=== PATIENT | male | born 1945 | race African-American/Black ===

== ENCOUNTER 2016-12-01 05:26 | Emergency (ER) | payer MEDICARE, OTHER ==
[~2016-12-01] VITALS: Ht 177.8 cm; Wt 110.0 kg
[~2016-12-01 05:26] MED LIST: ALTA1.256 PO; ASPI81 PO; CARV12.52 PO; GUAI600 PO; MAXZ25 PO; RIVA15 PO; ZITH250T PO
[2016-12-01 05:28] VITALS: BP 189/89; PULSE 66; RESP 16; TEMP 97.6; O2SAT 98
[2016-12-01] MEDS ORDERED: cloNIDine HCL 0.2 MG TAB PO ONE (05:45)
[2016-12-01] MEDS ORDERED: RAMI1.252 PO (05:47)
[2016-12-01] MEDS ORDERED: CARV12.52 PO (05:47)
[2016-12-01] MEDS ORDERED: ASPI81CH CHEW (05:47)
[2016-12-01] MEDS ORDERED: ATOR1TAB18 PO (05:50)
[2016-12-01] MEDS ORDERED: TRIA37.5 PO (05:50)
--- NOTE | 2016-12-01 05:59 | PD ---
HPI Chief Complaint: Nosebleed Time Seen by Provider: 05:54 Travel History International Travel<30 days: No Contact w/Intl Traveler<30days: No Traveled to known affect area: No History of Present Illness HPI 71-year-old black male presents to emergency department for evaluation of epistaxis. According to the patient sometime last hour or so he had noticed some trickling of blood out of his right nostril. He states that he had stop the bleeding by holding direct pressure. He presents this evening to determine the etiology of the bleeding. He states that this is a second time at its bled in the past. It had bled several months ago. The etiology was not determined. He states that he has insurance and he would like to get it evaluated. He states that he needs blood work. 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 Betancur. He states that he had been on Xarelto but he is not taking any blood thinners at this current time except for a daily aspirin. Denies any recent illness. He does take medication for hypertension. PFSH Past Medical History Narrative Medical Pulmonary embolus, hypertension, hypercholesterolemia Hx Anticoagulant Therapy: Yes Autoimmune Disease: No Anxiety: No Depression: No Cancer: No Cardiovascular Problems: Yes (HTN) High Cholesterol: Yes Chemotherapy: No Cerebrovascular Accident: No Diabetes: No Endocrine: No Genitourinary: No Hypertension: Yes Immune Disorder: No Musculoskeletal: Yes Neurologic: No Psychiatric: No Respiratory: No Tetanus Vaccination: < 5 Years Past Surgical History Hysterectomy: No Pacemaker: No Other Surgery: Yes (JAW SURGERY) Social History Alcohol Use: Yes (WEEKENDS) Tobacco Use: No Substance Use: No Allergies-Medications (Allergen,Severity, Reaction): Coded Allergies: No Known Allergies (Verified , 12/01/16) Reported Meds & Prescriptions Reported Meds & Active Scripts Active Reported Atorvastatin (Atorvastatin Calcium) 80 Mg Tab 80 Mg PO HS Triamterene-Hydrochlorothiazide 37.5-25 Mg Tab 1 Tab PO DAILY Ramipril 1.25 Mg Cap 1.25 Mg PO BID Carvedilol 12.5 Mg Tab 12.5 Mg PO DAILY Aspirin 81 Mg Chew 81 Mg CHEW DAILY Review of Systems Except as stated in HPI: all other systems reviewed are Neg General / Constitutional: No: Fever, Chills Eyes: No: Photophobia, Visual changes HENT: Positive: Nosebleed, No: Sore Throat, Congestion, Neck Stiffness, Neck Pain, Gingival Bleeding, Dental Difficulties, Ear Discharge, Earache Cardiovascular: No: Chest Pain or Discomfort, Palpitations Respiratory: No: Cough, Shortness of Breath Gastrointestinal: No: Nausea, Vomiting Genitourinary: No: Dysuria, Hematuria Musculoskeletal: No: Myalgias, Arthralgias Physical Exam Narrative GENERAL: Well-developed, well-nourished in no acute distress. Nontoxic appearing. HEAD: Normocephalic, atraumatic. EYES: Pupils equal round and reactive. Extraocular motions intact. No scleral icterus. No injection or drainage. ENT: TMs clear without erythema. The external auditory canals clear. Nose: clear . I do not see an area of active bleeding. I do not see any significant clot in either nostril. There is no bleeding in the posterior pharynx. Posterior pharynx is pink and moist. No tonsillar edema or exudate. Uvula midline. Airway patent. NECK: Trachea midline.Supple, nontender, moves head freely. No central bony tenderness or spasm. CARDIOVASCULAR: Regular rate and rhythm without murmurs, gallops, or rubs. RESPIRATORY: Clear to auscultation. Breath sounds equal bilaterally. No wheezes , rales, or rhonchi. GASTROINTESTINAL: Abdomen soft, non-tender, nondistended. No hepato-splenomegaly , or palpable masses. No guarding. EXTREMITIES: No clubbing, cyanosis, or edema. No joint tenderness, effusion, or edema noted. BACK: Nontender without deformity or crepitance. No flank tenderness. Data Data Last Documented VS Vital Signs Date Time Temp Pulse Resp B/P Pulse Ox O2 Delivery O2 Flow Rate FiO2 12/01/16 05:36 66 16 12/01/16 05:28 97.6 189/89 98 Room Air Orders Clonidine (Catapres) (12/01/16 05:45) Complete Blood Count With Diff (12/01/16 05:37) Prothrombin Time / Inr (Pt) (12/01/16 05:37) Act Partial Throm Time (Ptt) (12/01/16 05:37) Labs Laboratory Tests Test 12/01/16 05:50 White Blood Count 5.7 TH/MM3 Red Blood Count 4.47 MIL/MM3 Hemoglobin 12.4 GM/DL Hematocrit 37.4 % Mean Corpuscular Volume 83.6 FL Mean Corpuscular Hemoglobin 27.6 PG Mean Corpuscular Hemoglobin 33.1 % Concent Red Cell Distribution Width 14.9 % Platelet Count 160 TH/MM3 Mean Platelet Volume 8.1 FL Neutrophils (%) (Auto) 57.5 % Lymphocytes (%) (Auto) 28.1 % Monocytes (%) (Auto) 11.4 % Eosinophils (%) (Auto) 2.3 % Basophils (%) (Auto) 0.7 % Neutrophils # (Auto) 3.3 TH/MM3 Lymphocytes # (Auto) 1.6 TH/MM3 Monocytes # (Auto) 0.7 TH/MM3 Eosinophils # (Auto) 0.1 TH/MM3 Basophils # (Auto) 0.0 TH/MM3 CBC Comment DIFF FINAL Differential Comment Prothrombin Time 11.3 SEC Prothromb Time International 1.0 RATIO Ratio Activated Partial 24.9 SEC Thromboplast Time MDM Medical Decision Making Medical Screen Exam Complete: Yes Emergency Medical Condition: Yes Medical Record Reviewed: Yes Interpretation(s) Laboratory Tests Test 12/01/16 05:50 White Blood Count 5.7 TH/MM3 Red Blood Count 4.47 MIL/MM3 Hemoglobin 12.4 GM/DL Hematocrit 37.4 % Mean Corpuscular Volume 83.6 FL Mean Corpuscular Hemoglobin 27.6 PG Mean Corpuscular Hemoglobin 33.1 % Concent Red Cell Distribution Width 14.9 % Platelet Count 160 TH/MM3 Mean Platelet Volume 8.1 FL Neutrophils (%) (Auto) 57.5 % Lymphocytes (%) (Auto) 28.1 % Monocytes (%) (Auto) 11.4 % Eosinophils (%) (Auto) 2.3 % Basophils (%) (Auto) 0.7 % Neutrophils # (Auto) 3.3 TH/MM3 Lymphocytes # (Auto) 1.6 TH/MM3 Monocytes # (Auto) 0.7 TH/MM3 Eosinophils # (Auto) 0.1 TH/MM3 Basophils # (Auto) 0.0 TH/MM3 CBC Comment DIFF FINAL Differential Comment Prothrombin Time 11.3 SEC Prothromb Time International 1.0 RATIO Ratio Activated Partial 24.9 SEC Thromboplast Time Differential Diagnosis Differential diagnoses: Hypertension, internal nosebleed, posterior nosebleed, coagulopathy Narrative Course The patient's laboratory tests are unremarkable. The patient's blood pressure has improved. He has not had any recurrent bleeding. This is epistaxis Diagnosis Primary Impression: Epistaxis Patient Instructions: General Instructions Additional Instructions: Rest. Nasal saline. Daily blood pressure checks. Follow-up with your doctor on Saturday for recheck. Med/Other Pt SpecificInfo: No Meds Exist/No RX given Disposition: DISCHARGE HOME Condition: Stable Javier Gutierrez Dec 01, 2016 05:59
[2016-12-01 06:10] LABS: AUTOMATED NEUTROPHIL # 3.3 TH/MM3 (1.8-7.7); BASOPHIL % 0.7 % (0.0-2.0); EOSINOPHIL # 0.1 TH/MM3 (0-0.4); EOSINOPHIL % 2.3 % (0.0-4.0); HEMATOCRIT 37.4 % (39.0-51.0); HEMO FLAGS DIFF FINAL; LYMPH % 28.1 % (9.0-44.0); LYMPHOCYTE # 1.6 TH/MM3 (1.0-4.8); MEAN CELL VOLUME 83.6 FL (80.0-100.0); MEAN CORPUSCULAR HEMOGLOBIN 27.6 PG (27.0-34.0); MEAN CORPUSCULAR HGB CONC 33.1 % (32.0-36.0); MONO % 11.4 % (0.0-8.0); NEUT % 57.5 % (16.0-70.0); PLATELET COUNT 160 TH/MM3 (150-450); RED BLOOD COUNT 4.47 MIL/MM3 (4.50-5.90); RED CELL DISTRIBUTION WIDTH 14.9 % (11.6-17.2); WHITE BLOOD COUNT 5.7 TH/MM3 (4.0-11.0)
[2016-12-01 06:13] LABS: APTT (PATIENT) 24.9 SEC (24.3-30.1); PROTHROMBIN TIME - PATIENT 11.3 SEC (9.8-11.6)
[2016-12-01 06:22] VITALS: BP 135/74; PULSE 58; RESP 14; O2SAT 98
== END 2016-12-01 06:33 | disposition home or self-care (01) ==
LOC: NEPD 05:26
DX: R04.0 Epistaxis (principal); I10 Essential (primary) hypertension; E78.00 Pure hypercholesterolemia, unspecified; Z86.711 Personal history of pulmonary embolism; Z79.82 Long term (current) use of aspirin; Z79.899 Other long term (current) drug therapy
CPT/HCPCS: 85025; 85610; 85730; 99283